=== PATIENT | female | born 1950 | race Caucasian/White ===

== ENCOUNTER 2018-07-01 19:13 | Emergency (ER) | payer MEDICAID ==
[~2018-07-01] VITALS: Ht 157.5 cm; Wt 64.4 kg
[2018-07-01 19:40] VITALS: BP_SYST 172
[2018-07-01 19:54] LABS: BILIRUBIN,URINE NEGATIVE (NEGATIVE); BLOOD, URINE 1+ (NEGATIVE); CLARITY/URINE CLEAR (CLEAR); COLOR,URINE YELLOW (YELLOW); GLUCOSE,URINE NEGATIVE (NEGATIVE); KETONES,URINE NEGATIVE (NEGATIVE); LEUKOCYTE ESTERASE ,URINE TRACE (NEGATIVE); NITRITE, URINE NEGATIVE (NEGATIVE); PROTEIN URINE NEGATIVE (NEGATIVE); UROBILINOGEN,URINE 0.2 (0.2-1.0)
[2018-07-01 20:15] LABS: BACTERIA,URINE RARE /HPF (None Seen); MUCUS,URINE None Seen /LPF (None Seen); YEAST,URINE None Seen /HPF (None Seen)
[2018-07-01] MEDS ORDERED: NACL 0.9% 1,000 ML IV ONE (20:25)
[2018-07-01] MEDS ORDERED: KETOROLAC TROMETHAMINE 30 MG VIAL IVP ONE (20:30)
[2018-07-01 20:46] LABS: BASOPHILS % (AUTO) 0.4 % (0.0-2.0); EOSINOPHILS # (AUTO) 0.3 K/uL (0.0-0.4); EOSINOPHILS % (AUTO) 4.7 % (0.0-4.0); HEMATOCRIT 42.1 % (36-48); LYMPHOCYTES # (AUTO) 1.7 K/uL (1.0-5.5); LYMPHOCYTES % (AUTO) 22.4 % (20.5-51.5); MEAN CORPUSCULAR HEMOGLOBIN 27 pg (27-31); MEAN CORPUSCULAR HGB CONC 33 % (32-36); MEAN CORPUSCULAR VOLUME 82 fL (79.0-98.0); MONOCYTES # (AUTO) 0.4 K/uL (0.0-1.0); NEUTROPHILS % (AUTO) 67.5 % (40.0-70.0); PLATELET COUNT (AUTO) 193 K/uL (130-430); RED BLOOD CELL COUNT(AUTO) 5.14 MIL/uL (4.2-6.2); RED CELL DISTRIBUTION WIDTH 12.7 % (9.0-15.0); WHITE BLOOD COUNT (AUTO) 7.4 K/uL (4.8-10.8)
[2018-07-01 20:55] LABS: CREATININE 0.68 mg/dL (0.55-1.30); POTASSIUM 3.8 mmol/L (3.5-5.1)
[2018-07-01 20:59] LABS: ALBUMIN 4.1 g/dL (3.4-4.8); TOTAL BILIRUBIN 0.6 mg/dL (0.0-1.0)
[2018-07-01] MEDS ORDERED: ONDANSETRON HCL 4 MG/2 ML VIAL IVP ONE (22:15)
[2018-07-01] MEDS ORDERED: MORPHINE 4 MG/ML INJ. SYRINGE IVP ONE (22:30)
[2018-07-01 23:01] VITALS: BP_SYST 163
== END 2018-07-01 23:01 | disposition home or self-care (01) ==
LOC: SED 19:13
DX: N39.0 Urinary tract infection, site not specified (principal); R10.32 Left lower quadrant pain; R11.0 Nausea; I10 Essential (primary) hypertension
CPT/HCPCS: 36415; 74176; 80053; 81000; 83690; 85025; 96374; 96375; 99285; J1885; J2270; J2405; J7030